=== PATIENT | male | born 1975 | race Caucasian/White ===

== ENCOUNTER 2017-01-02 07:54 | Day surgery (SDC) | payer MEDICARE, OTHER ==
[2016-12-21 14:21] VITALS: BMI 22.1
[2017-01-02] MEDS ORDERED: Bupivacaine HCl 0.5% PF (10 ml) Inj ONE ×2 (08:59)
[2017-01-02] MEDS ORDERED: Lidocaine 1% Inj (20ml) ONE (08:59)
[2017-01-02] MEDS ORDERED: ceFAZolin IV 1 gm in Dextrose 50 ML IVPB ONE (08:59)
[2017-01-02] MEDS ORDERED: Propofol 10 mg/ml Inj (20 ML) ONE (09:07)
[2017-01-02] MEDS ORDERED: Midazolam 2 MG/2 ML VIAL ONE (09:07)
[2017-01-02] MEDS ORDERED: Lidocaine Hydrochloride 5 ML INJ ONE (09:08)
[2017-01-02] MEDS ORDERED: Dexamethasone 4 mg/1 ml ONE (09:50)
[2017-01-02] MEDS ORDERED: Bacitracin 500 Units/gm Oint Foilpak UD ONE (09:58)
--- NOTE | 2017-01-02 10:12 | PCM.SURG1 ---
Surgeon's Initial Post Op Note - Surgeon's Notes Surgeon: Judy Laborer [employer]: Yasmine Yanez Type of Anesthesia: General LMA Anesthesia Administered By: Kostas Pre-Operative Diagnosis: Right foot cyst. Right foot elongated 2nd MT. Operative Findings: see dication. 14mm 2.0 synthes Post-Operative Diagnosis: Same Operation Performed: Right foot Zacarias. right foot cyst removal Specimen/Specimens Removed: Cyst. cyst fluid Estimated Blood Loss: EBL {In ML}: 5 Blood Products Given: N/A Drains Used: No Drains Date of Surgery/Procedure: 01/02/17 Time of Surgery/Procedure: 10:11
[2017-01-02] MEDS ORDERED: Oxycodone/Acetaminophen 5/325 mg Tab PO PRN ×2 (10:13)
--- NOTE | 2017-01-02 10:18 | CP.PCM.DIS ---
Provider - Provider Date of Admission: 01/02/17 Attending physician: Haresh Kim DPM Time Spent in preparation of Discharge (in minutes): 25 Diagnosis - Discharge Diagnosis (1) Other bursal cyst, unspecified ankle and foot Status: Acute (2) Prominent metatarsal head of right foot Status: Acute Hospital Course - Hospital Course Hospital Course: Patient evaluated and charts reivewed discussed with patient in extent procedure and possible complications patient wishes to continue with surgery NPO status verified, Pre op abx given Patient cleared for surgeyr and taken to the OR with VSS and NVSI to the right foot Patient tolerated anesthesia and procedure well and was transported the the PACU with VSS and NVSI to the right foot. to f/u with Dr. Kim by weeks end. Rx given to patient. Discharge Exam - Neurological Exam Neurological exam: Alert, Oriented x3 - Psychiatric Exam Psychiatric exam: Normal Affect, Normal Mood - Skin Skin Exam: Normal Color, Warm - Additional Findings Additional findings: Neurovascular status intact to all digits of the riht foot. Discharge Plan - Follow Up Plan Condition: GOOD Disposition: HOME/ ROUTINE Patient education suggested?: Yes Additional Instructions: Keed dressing CDI until follow up Rx given to patient To weight bear to heel with surgical shoe. F/u with Dr. Kim in the office as previously scheduled. Referrals: Haresh Kim DPM [[facility]] -
[2017-01-02] MEDS ORDERED: HYDROmorphone 0.5 mg/0.5 ml ISec IVP PRN (10:25)
[2017-01-02] MEDS ORDERED: Lactated Ringer's 1,000 ML IV SCH (10:30)
--- NOTE | 2017-01-02 10:30 | CP.PCM.PN ---
Subjective - Date & Time of Evaluation Date of Evaluation: 01/02/17 Time of Evaluation: 09:00 - Subjective Subjective: 41 y/o male presents to [facility] for surgical intervention of painful cyst and elongated,, plantarflexed second metatarsal. Patient states that he has has a callus on the bottom of his foot that causes him pain while walking and while wearing shoegear. Patient states that he has exhausted conservative treatment and is now requesting surgical intervention. patient denies any nausea, vomiting , fever or chills. Objective - Vital Signs/Intake and Output Vital Signs (last 24 hours): Temp Pulse Resp BP Pulse Ox 97.8 F 60 18 138/83 98 01/02/17 08:09 01/02/17 08:09 01/02/17 08:09 01/02/17 08:09 01/02/17 08:09 Intake and Output: 01/02/17 01/02/17 06:59 18:59 Intake Total 50 Balance 50 - Medications Medications: Current Medications Acetaminophen (Tylenol 325mg Tab) 650 mg PO Q6 PRN PRN Reason: Pain, Mild (1-3) Oxycodone/Acetaminophen (Percocet 5/325 Mg Tab) 1 tab PO Q6H PRN PRN Reason: Pain, moderate (4-7) Stop: 01/05/17 10:14 Oxycodone/Acetaminophen (Percocet 5/325 Mg Tab) 2 tab PO Q6H PRN PRN Reason: Pain, severe (8-10) Stop: 01/05/17 10:14 - Additional Findings Additional findings: Vascular: DP and PT pulses palpable 2/4. CT < 3 seconds to all distal digits. Skin temperature is warm from proximal to distal. Pedal hair growth noted to all digits. No erythema noted. Edema noted to first webspace. No varicosities noted. Neuro: Pain sensation intact. Protective sensation intact. Negative Tinels. Derm: No open lesions or abrasions noted. Palpable, firm, mobile mass noted to dorsal aspect of 2nd MPJ. Mild pain with palpation of mass. Hyperkeratotic lesion noted to sub metatarsal two. Biomech/Musc: Patient presents with antalgic gait to RLE. Patient with Rectus shoulder and hip height..With slight increased internal rotation with swing phase to RLE. 1 cm limb length discrepancy, Right >left. Normal heel strike noted with slight abductory twist during stance. Eight degrees dorsiflexion at ankle joint noted with knee both extended and flexed. STK ROM is full, 20:1- Inv:ever, without pain or crepitus. MTJ ROM is full without pain or crepitus. 1st metatarso- cuneiform joint is hypermobile, with mild medial eminence. Second metatarsal head is palpable with hyperkeratotic lesion noted to sub met 2 and subluxation at second MPJ. Assessment and Plan - Assessment and Plan (Free Text) Assessment: Pt was seen and examined in SDS Biomechanical examination performed Pt NPO status was confirmed All Pre-op testing and clearance was in the chart Pt has exhausted all conservative treatment at this time and is opting for surgical intervention Pt was explained procedure and post-operative course All pt's questions were answered to satisfaction No guarantees were made Pt understands all risks, benefits and complications of procedure Pt will follow-up with Dr. Kim
[2017-01-02 11:48] VITALS: RESP 18
[2017-01-02 12:26] VITALS: BP 127/78; PULSE 55; TEMP 97.8; O2SAT 100
--- NOTE | 2017-01-02 12:30 | RAD ---
PROCEDURE: Right Foot Radiographs. HISTORY: s/p right foot surgery COMPARISON: None available. FINDINGS: BONES: Metallic screw at the distal second metacarpal. No acute displaced fracture. JOINTS: No dislocation. SOFT TISSUES: Soft tissue swelling. Small subcutaneous emphysema. OTHER FINDINGS: None. IMPRESSION: Metallic screw, distal second metacarpal. Soft tissue swelling. Small subcutaneous emphysema.
--- NOTE | 2017-01-02 20:54 | OP ---
PROCEDURE DATE: 01/02/2017 PREOPERATIVE DIAGNOSES: 1. Right foot soft tissue mass. 2. Right foot elongated second metatarsal. POSTOPERATIVE DIAGNOSES: 1. Right foot soft tissue mass. 2. Right foot elongated second metatarsal. PROCEDURES: 1. Right foot soft tissue mass removal. 2. Right foot Zacarias osteotomy with screw fixation. SURGEON: Haresh Kim DPM PET SITTER: Ton Yanez, PGY-2; and Dr. Rodriguez ____, PGY-3. ANESTHESIOLOGIST: ____. ANESTHESIA: IV sedation with local injection. INDICATIONS: This patient is a 41-year-old male with the above-mentioned diagnosis. The patient has exhausted all forms of conservative treatment at this time, and wished to have further surgical inte rvention for the conditions listed above. After careful explanation of risks, benefits, complication s for the procedure, patient signed a consent form. All questions and concerns were addressed at thi s time. Prior to taking patient to the OR, n.p.o. status was verified and preoperative antibiotics w ere given. OPERATIVE PROCEDURE: The patient was brought to the operative room and placed on operating room tabl e in supine position. Pneumatic ankle tourniquet was placed on the patient's right ankle in supramal leolar position at 250 mmHg. Following induction of IV sedation, a local injection of 20 mL of a 1:1 mixture of 1% lidocaine plain and 0.5% Marcaine plain was injected into the right foot in local bloc k type fashion without complication. Following local anesthetic, the right foot was prepped and drap ed in normal sterile manner and the procedure began. PROCEDURE #1: RIGHT FOOT SOFT TISSUE MASS REMOVAL: At this time, attention was directed to the dors al aspect of the second metatarsophalangeal joint where there was noted to be a palpable and nonmobil e soft tissue mass just medial to the second metatarsophalangeal joint. At this time, utilizing a #1 5 blade, a roughly 2 cm long incision was made overlying the second metatarsophalangeal joint in an S -shaped configuration. Utilizing blunt dissection this incision was then deepened, and upon deepenin g there was a large cyst type mass present in the first interspace. At this time, utilizing blunt di ssection, the cyst was then freed from all surrounding soft tissue attachments. The cyst was then el evated and was cut at the most plantar portion of the stalk that was able to be reached with a scisso r. The cyst was then cut from the stalk and passed from the operative field. A sample was taken of the fluid that was contained inside the cyst and sent for pathology as well as the cyst itself was se nt for pathology. Following this, the wound was then flushed with copious amounts of normal sterile saline. PROCEDURE #2: RIGHT FOOT SECOND METATARSAL ZACARIAS OSTEOTOMY WITH FIXATION: At this time, utilizing th e same incision and utilizing a #15 blade, the extensor tendon was then freed from the soft tissue at tachment and retracted medially to allow access to the second metatarsophalangeal joint. Utilizing a #15 blade, a linear incision was made over the capsule overlying the second metatarsal head and the capsule was then freed from its attachments of the second metatarsal head, exposing the second metata rsal head to the operative field. At this time, utilizing a sagittal saw, a dorsal-distal to plantar -proximal cut was made parallel with the weightbearing surface of the second metatarsal head to allow for a shortening and dorsiflexion force of the second metatarsal. At this time, it was noted that t he second digit became in a more rectus position and, at this time, we made sure that the capital fra gment of the osteotomy was placed and seated well underneath the second metatarsal and, utilizing a K -wire, temporary fixation was then placed across the osteotomy site. Following this, a 2.0 x 14 mm S ynthes screw was placed across the osteotomy site in normal AO fashion. There was good compression n oted across the osteotomy site. Following this, utilizing a rongeur, the remaining bone shelf on the dorsal lip was resected and passed from the operative field. It was noted that the toe was in good position, so the wound was then flushed with copious amounts of normal sterile saline. The wound was then closed with 3-0 Vicryl, 4-0 Vicryl and 4-0 nylon in a normal sterile manner. POSTOPERATIVE CONDITION: The patient tolerated anesthesia and procedure well and was transported to the recovery room with vital signs stable and neurovascular status intact to the right foot. The pat ient will follow up with Dr. Kim in his office as previously discussed with the patient. Ton [facility] Haresh Kim DPM cc: [id number] TT: 01/02/2017 20:53:54 [facility] # [id number] mn
== END 2017-01-02 12:10 | disposition home or self-care (01) ==
LOC: C.SDS 07:54
PROVIDERS: ATTEND Podiatrist Foot & Ankle Surgery
DX: Q79.9 Congenital malformation of musculoskeletal system, unspecified (principal); M67.471 Ganglion, right ankle and foot
CPT/HCPCS: 28090; 28308; 73620; 88304; 88305; C1713; J0690; J1100; J2250; J2704; J3010

== ENCOUNTER 2019-02-20 06:31 | Day surgery (SDC) | payer MEDICARE, OTHER ==
[2019-02-13 08:35] VITALS: BMI 25.8
[2019-02-20] MEDS ORDERED: Lidocaine Hydrochloride 10 ML INJ ONE (09:18)
[2019-02-20] MEDS ORDERED: Bupivacaine HCl 0.25% PF (10 ml) Inj ONE (09:18)
[2019-02-20] MEDS ORDERED: ceFOXitin IV 1 gm/100 ml in NS 1 GM/100 ML BAG ONE (09:18)
[2019-02-20] MEDS ORDERED: Midazolam 2 MG/2 ML VIAL ONE (09:31)
[2019-02-20] MEDS ORDERED: Bacitracin Ointment 30 GM TUBE ONE (09:33)
[2019-02-20] MEDS ORDERED: ceFAZolin 1 gm in NS 1 GM/100 ML BAG IVPB ONE (09:38)
[2019-02-20] MEDS ORDERED: Propofol 10 mg/ml Inj (20 ML) ONE (09:41)
--- NOTE | 2019-02-20 10:03 | PCM.SURG1 ---
Surgeon's Initial Post Op Note - Surgeon's Notes Surgeon: Dr. Kim [employer] Technician: Kindra Alva PGY-2 Type of Anesthesia: IV Sedation, Local Anesthesia Administered By: Hayden HART/Tim LOWE Pre-Operative Diagnosis: right foot painful hardware Operative Findings: see dictation. I: 10cc 1:1 mixture 1% Lidocaine plain and 0.5% Marcaine plain. M: 3-0 Vicryl, 4-0 Nylon, Synthes 2-0 screw (removed as specimen) Post-Operative Diagnosis: same Operation Performed: right foot removal of painful hardware Specimen/Specimens Removed: Synthes 2.0 screw Estimated Blood Loss: EBL {In ML}: 3 Blood Products Given: N/A Drains Used: No Drains Post-Op Condition: Good Date of Surgery/Procedure: 02/20/19 Time of Surgery/Procedure: 09:30
--- NOTE | 2019-02-20 10:07 | PCM.OP ---
Operative Report - Operative Report Date of Surgery/Procedure: 02/20/19 Time of Surgery/Procedure: 09:30 Surgeon: Dr. Kim Knot Cutter: Kindra Alva PGY-2 Anesthesia/Sedation: IV sedation with local injection Hayden HART/Tim LOWE Pre-Operative Diagnosis: right foot painful hardware Post-Operative Diagnosis: same Indication for Surgery: The patient is a 43 year-old male with the above diagnoses. The patient has exhausted conservative treatment at this time and now requests surgical intervention. The patient signed the consent after careful explanation of risks, benefits, complications and alternatives for surgical procedure. No guarantees were given nor implied. NPO status was confirmed prior to taking the patient to the operating room. Operative Findings: The patient was brought to the operating room and placed on the operating room table in the supine position. A well-padded pneumatic ankle tourniquet was placed to the patient's right ankle in the supramalleolar position. After induction of IV sedation, the patient received a total of 10 mL of 1:1 mixture of 0.5% Marcaine plain and 1% Lidocaine plain in a local block fashion. Once local anesthesia was achieved, the right foot was then prepped and draped in usual sterile manner. An esmarch was utilized to exsanguinate the patient's rig ht foot. The pneumatic ankle tourniquet was then inflated to 250 mm Hg and procedure began. Procedure/Operation Description: Attention was then directed to the right second metatarsal where one painful Synthes 2.0 screw was present and noted to be palpable and prominent dorsally. An approximately 1 cm linear longitudinal incision was made with a number 15 blade overlying the 2nd metatarsal head. The incision was deepened through the subcutaneous tissues using sharp and blunt dissection all the way down to bone. Care was taken to identify and retract all vital neurovascular structures. The Synthes 2.0 screw was then visualized through the incision. Using a freer elevator and a gauge, the soft tissue was dissected from the hardware and the screw was removed from the second metatarsal using a screwdriver. The wound was then flushed with copious amounts of sterile normal saline solution. The subcutaneous tissues were reapproximated with 4-0 Vicryl. The skin overlying the surgical incision site was then reapproximated and coapted utilizing 4-0 nylon with simple sutures. Postoperative bandages included bacitracin, Adaptic, 4x4 gauze, Rafy and an MARY ELLEN bandage. Estimated Blood Loss: 3mL Complications: none Specimen: Synthes 2.0 screw Discharge & Condition: The patient tolerated the anesthesia and procedure well and was escorted to the recovery room with vital signs stable and neurovascular status intact to the right foot. This patient will follow up with Dr. Kim in his office within 1 week of surgery.
[2019-02-20] MEDS ORDERED: Lactated Ringer's 1,000 ML IV SCH (10:15)
[2019-02-20] MEDS ORDERED: Oxycodone/Acetaminophen 5/325 mg Tab PO PRN ×2 (10:45→10:46)
[2019-02-20] MEDS ORDERED: HYDROmorphone 0.5 mg/0.5 ml ISec IVP PRN (10:46)
[2019-02-20 12:05] VITALS: BP 106/78; PULSE 72; RESP 18; TEMP 98; O2SAT 100
== END 2019-02-20 11:50 | disposition home or self-care (01) ==
LOC: C.SDS 06:31
PROVIDERS: ATTEND Podiatrist Foot & Ankle Surgery
DX: T84.89XA Other specified complication of internal orthopedic prosthetic devices, implants and grafts, initial encounter (principal); T84.84XA Pain due to internal orthopedic prosthetic devices, implants and grafts, initial encounter; Y83.1 Surgical operation with implant of artificial internal device as the cause of abnormal reaction of the patient, or of later complication, without mention of misadventure at the time of the procedure
CPT/HCPCS: 20680; J0690; J2250; J2704; J3010